=== PATIENT | female | born 1985 | race Two or more races ===

== ENCOUNTER 2020-11-19 08:55 | Outpatient (REF) | payer MEDICAID, SELFPAY | END 2020-11-19 08:56 | disposition home or self-care (01) | LOC: HO.LAB 08:55 | PROVIDERS: Visit Provider Internal Medicine | DX: Z20.822 Contact with and (suspected) exposure to COVID-19 (principal) | CPT/HCPCS: C9803; U0003; U0005 ==

== ENCOUNTER 2025-05-06 09:05 | Outpatient (REF) | payer MEDICAID, SELFPAY ==
--- OUTSIDE RECORDS SUMMARY | 2025-05-05 13:00 | XMS_ITS | Encounter Summary ---
Author Organization [employer] Address [address] [facility] [address], [place] [address] Care Team Providers Care Eeler Name Role Phone Caitlyn Powell CNP Primary Care Provider [phone] [phone] Reason for Referral * Consultation (Routine) - Pending Review Specialty Diagnoses / Procedures Referred By Walter escalera Referred To Contact Obstetrics and Gynecology Diagnoses Encounter for screening for malignant neoplasm of cervix Caitlyn Powell CNP [address] [place] [address] Phone: tel: fax: Referral ID Status Reason Start Date Expiration Date Visits Requested Visits Authorized [id number] Pending Review Specialty Services Required 05/05/2025 05/05/2026 1 1 Encounter Details Date Type Department Care Team ([facility] st Contact Info) Description 05/05/2025 1:00 PM EDT Office Visit [facility] [address] [place] [address] Caitlyn Powell CNP [address] [place] [address] Encounter to establish care (Primary Dx); Encounter for physical examination; Encounter for screening for malignant neoplasm of cervix Social History Tobacco Use Types Packs/Day Years Used Date Smoking Tobacco: Never Passive Smoke Exposure: Never Smokeless Tobacco: Never Alcohol Use Standard Drinks/Week Comments Yes 1 (1 standard drink = 0.6 oz pur e alcohol) Alcohol Answer Date Recorded Q1: How often do you have a drink containing alc ohol? 2 05/05/2025 Average Number of Drinks Not on file 025 Q3: How often do you have si x or more drinks on one occasion? 1 05/05/2025 Housing Stability Answer Date Recorded What is your housing situation today? I have torin waldron 04/28/[address] you li ve. Do you have problems with any of the following? None of the above 04/28/2025 Food Insecurity Answer Date Recorded Within the past 12 months, y ou worried that your food would run out before you got money to buy more: Never True 04/28/2025 Within the past 12 months,th e food you bought just didn't last and you didn't have enough money to get more: Never True Transportation Answer Date Recorded In the past 12 months, has l ack of transportation kept you from medical appts, meetings, work or from getting things needed for daily living? No 04/28/2025 Utilities Answer Date Recorded In the past 12 months, has t he electric, gas, oil or water company threatened to shut off services in your home? No 04/28/2025 Internet Access Answer Date Recorded Internet Access Q1 Yes 04/28/2025 Internet Access Q2 Not on file 04/28/2025 Comments No Intention Date Recorded No desire to become (finding) 0 05/05/2025 Sex and Gender Information Value Date Recorded Sex Assigned at Female 06/05/2022 10:15 AM EDT Legal Sex Female 10:15 AM EDT Gender Identity Female 06/05/2022 10:15 AM EDT Sexual Orientation Straight 04/28/2025 1: 06 PM EDT documented as of this encounter Last Filed Vital Signs Vital Sign Reading Time Taken Comments Blood Pressure 128/80 05/05/2025 1:12 PM EDT Pulse 70 05/05/2025 1:12 PM EDT Temperature 36.7 C (98.1 F) 05/05/2025 1:12 PM EDT Respiratory Rate 16 05/05/2025 1:12 PM EDT Oxygen Saturation 100% 05/05/2025 1:12 PM EDT Inhaled Oxygen Concentration - - Weight 78 kg (172 lb) 05/05/2025 1:12 PM EDT Height 162.6 cm (5' 4 ) 05/05/2025 1:12 PM EDT Body Mass Index 29.52 05/05/2025 1:12 PM EDT documented in this encounter Functional Status documented as of this encounter Progress Notes * Caitlyn Powell CNP - 05/05/2025 1:00 PM EDT Subjective: Danis Link is a 40 y.o. female who presents to the office for a new patient visit. Previous PCP unknown. Denies recent illness, injury or hospitalization. 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 She goes to [facility] OBGYN already established just needs new referral in place. Not seeking . Mental health:Denies any feelings of depression or anxiety No LMP recorded. (Menstrual status: IUD). Amenorrheic on IUD Allergies[4] Review of Systems Vitals: 05/05/25 1312 BP: 128/80 BP Location: Left arm Patient Position: Sitting BP Cuff Size: Large adult Pulse: 70 Resp: 16 Temp: 98.1 ??F (36.7 ??C) TempSrc: Oral SpO2: 100% Weight: 172 lb (78 kg) Height: 5' 4 (1.626 m) Physical Exam Constitutional: Appearance: Normal appearance. She is normal weight. HENT: Head: Normocephalic and atraumatic. Eyes: Extraocular Movements: Extraocular movements intact. Pupils: Pupils are equal, round, and reactive to light. Cardiovascular: Rate and Rhythm: Normal rate and regular rhythm. Pulses: Normal pulses. Heart sounds: Normal heart sounds. No murmur heard. No friction rub. No gallop. Pulmonary: Effort: Pulmonary effort is normal. No respiratory distress. Breath sounds: Normal breath sounds. No wheezing or rales. Musculoskeletal: Cervical back: Neck supple. No rigidity or tenderness. Right lower leg: No edema. Left lower leg: No edema. Lymphadenopathy: Cervical: No cervical adenopathy. Neurological: General: No focal deficit present. Mental Status: She is alert and oriented to person, place, and time. Psychiatric: Mood and Affect: Mood normal. Behavior: Behavior normal. Thought Content: Thought content normal. Judgment: Judgment normal. Assessment & Plan Encounter to establish care Encounter for physical examination 1. Anticipatory guidance discussed. Specific topics reviewed: drugs, ETOH, and tobacco, importance of regular dental care, importance of regular exercise, importance of varied diet, minimize junk food, and sex; STD and prevention as appropriate. 2. Age appropriate screenings discussed Routine Screening and Health Maintenance Optometry: No needs referral Dentist: Yes has dental home ASCVD risk: 40 y.o. femalelow no history of CVD or CVD risk factors Lab Review: no lab studies available for review at time of visit All due immunizations declined by pt Routine Cancer Screening Breast CA: not yet indicated based on age, denies personal or fam history of breast cancer Cervical CA: due, has appointment scheduled for next week Colon CA: not yet indicated based on age Orders: HIV-1/2 Antigen and Antibodies, Fourth Generation, with Reflexes; Future CBC auto differential; Future Basic Metabolic Panel; Future Lipid Panel, Standard; Future Hepatitis C Antibody with Reflex to HCV, RNA, Quantitative, Real-Time PCR; Future Encounter for screening for malignant neoplasm of cervix Will refer to OBGYN as requested by pt. She is already established. She plans to have cervical cancer screening and IUD replacement at scheduled appointment. Current Medications[5] Immunization History Administered Date(s) Administered Influenza injectable quadrivalent IIV4 with preservative 05/03/2015 [employer] Covid-19 Vaccine 12+ 12/01/2020, 12/24/2020 Tdap 05/03/2015, 11/06/2018 Follow up in about 1 year (around 05/05/2026) for routine physical. [1] There is no problem list on file for this patient. [2] Past Surgical History: Procedure Laterality Date TONSILLECTOMY 1994 [3] Family History Problem Relation Name Age of Onset Drug abuse Father Daniel Link Cancer Father Daniel Link 40 - 49 Cancer Maternal Grandmother Ailin Gray 80 - 99 [4] Not on File [5] No current outpatient medications on file. No current facility-administered medications for this visit. documented in this encounter Plan of Treatment Scheduled Orders Name Type Priority Associated Diagnoses Orde r Schedule HIV-1/2 Antigen and Antibodies, Fourth Generation, with Reflexes Lab Routine Encounter for physical examination Expected: 05/05/2025 (Approximate), Expires: 05/05/2026 CBC auto differential Lab Routine Encounter for physical examination Expected: 05/05/2025 (Approximate), Expires: 05/05/2026 Basic Metabolic Panel Lab Routine Encounter for physical examination Expected: 05/05/2025 (Approximate), Expires: 05/05/2026 Lipid Panel, Standard Lab Routine Encounter for physical examination Expected: 05/05/2025 (Approximate), Expires: 05/05/2026 Hepatitis C Antibody with Reflex to HCV, RNA, Quantitative, Real-Time PCR Lab Routine Encounter for physical examination Expected: 05/05/2025, Expires: 05/05/2026 Scheduled Referrals Name Type Priority Associated Diagnoses Order Schedule Referral to Obstetrics / Gynecology Outpatient Referral Routine Encounter for screening for malignant neoplasm of cervix Expected: 05/05/2025 (Approximate), Expires: 05/05/2026 documented as of this encounter Visit Diagnoses Diagnosis Encounter to establish care- Primary Encounter for physical examination Encounter for screening for malignant neoplasm of cervix documented in this encounter Care Teams Eeler Relationship Specialty Start Date End Date Caitlyn Powell CNP [address] [place] [id number] PCP - General Family Medicine 05/05/25 documented as of this encounter
--- OUTSIDE RECORDS SUMMARY | 2025-05-06 09:48 | XMS_ITS | Clinical Summary ---
Author Organization [employer] Address [address] [facility] [address] [place] [address] Care Team Providers Care Water Softener Servicer And Installer Name Role Phone Caitlyn Powell CNP Primary Care Provider [phone] Medications ketoconazole (NIZOral) 2 % cream Apply topically every 12 (twelve) hours. 10/15/19 19 025 Discontinued Ferrous Sulfate (iron) 90 (18 Fe) MG tablet 025 Discontinued cholecalcifero l (Vitamin D-3) 25 MCG (1000 UT) tablet Take 1 tablet by mouth at bed time. 07/20/20 21 025 Discontinued chlorhexidine (Peridex) 0.12 % solution RINSE WITH 15 ML IN MOUTH FOR A MINUTE 2 TIMES A DAY MOUTHWASH. DON'T SWALLOW 12/31/19 25 025 Discontinued Encounters Date Type Department Care Team Description 05/05/2025 1:00 PM EDT Office Visit [facility] [address] [place] [address] Caitlyn Powell CNP Encounter to establish care (Primary Dx); Encounter for physical examination; Encounter for screening for malignant neoplasm of cervix 05/05/2025 Travel 05/04/2025 Telephone [facility] [address] [place] [address] Lori Navarrete MA Chart Prep 04/28/2025 Patient Outreach [facility] [address] [place], [place] [phone] Matthew Plummer MD Pre-visit Planning (SDOH screening negative and Tobacco screening positive ) 04/28/2025 Travel 04/13/2025 Telephone [facility] [address] [place] [address] Matthew Plummer MD 04/09/2025 Telephone [facility] [address] [place] [address] Matthew Plummer MD [facility] - New Patient Assistance from Last 3 Months Immunizations Immunization Administration Dates Next Due Influenza injectable quadriv alent IIV4 with preservative 05/03/2015 Tdap 11/06/2018,05/03/2015 Family History Medical History Relation Name Comments Cancer Father Daniel Link Drug abuse Father Daniel Link Cancer Maternal Grandmother Ailin Gray Relation Name Status Comments Father Daniel Link Maternal Grandmother Ailin Gray Social History Tobacco Use Types Packs/Day Years [...] Orientation Straight 04/28/2025 1: 06 PM EDT Last Filed Vital Signs Vital Sign Reading [...] Mass Index 29.52 05/05/2025 1:12 PM EDT Plan of Treatment Health Maintenance Due Date Last Done Comments Depression Screening 1987 HIV Screening 1987 Hepatitis C Screening 2005 Pap Smear 02/20/2008 Cervical Cancer Screening 2017 HPV/Cotest 2017 Influenza Vaccine (#1) 2026 05/03/2015 Postp oned from 04/06/2025 (Patient Refused) Disability Screening 04/28/2026 04/28/2025 Alcohol/Substance Use Screening 05/05/2026 05/05/2025 COVID-19 Vaccine (3 - 2024-2 6 season) 2026 12/24/2020, 12/01/2020 Postponed from 04/06/2025 (Patient Refused) Family Planning (PISQ) 05/05/2026 05/05/2025 HPV Vaccines (1 - 3-dose series) 05/05/2026 Postponed from 02/19 (Patient Refused) Hepatitis B Vaccines (1 of 3 - 19+ 3-dose series) 05/05/2026 Postponed from 02/03 (Patient Refused) SDOH Screening 05/05/2026 05/05/2025 Tobacco Screening 05/05/2026 05/05/2025 DTaP/Tdap/Td Vaccines (3 - T d or Tdap) 11/06/2028 11/06/2018, 05/03/2015 Zoster Vaccines (1 of 2) 2037 RSV Patients and Patients Aged 60 years or older (1 - 1-dose 75+ series) 2062 HIB Vaccines Aged Out No longer eligi ble based on patient's age to complete this topic Hepatitis A Vaccines Aged Out No long er eligible based on patient's age to complete this topic IPV Vaccines Aged Out No longer eligi ble based on patient's age to complete this topic Meningococcal B Vaccine Aged Out No l onger eligible based on patient's age to complete this topic Meningococcal Vaccine Aged Out No jonathan obdulia eligible based on patient's age to complete this topic Pneumococcal Vaccine: Pediatrics (0 to 5 Years) and At-Risk Patients (6 to 49) Years Aged Out No longer eligible b ased on patient's age to complete this topic RSV under 20 months Aged Out No longe r eligible based on patient's age to complete this topic Rotavirus Vaccines Aged Out No longer eligible based on patient's age to complete this topic Insurance [facility] C3 Care Teams Water Softener Servicer And Installer Relationship Specialty Start Date End Date Caitlyn Powell CNP [address] [place] [address] [place] [address] PCP - General Family Medicine 05/05/25
--- OUTSIDE RECORDS SUMMARY | 2025-05-06 09:48 | XMS_ITS | Encounter Summary ---
Author Organization [employer] Address [address] [facility] [address] [place] [address] Care Team Providers Care Naphthalene Operator Name Role Phone Jaycob Ramírez MD Primary Care Prov ider Caitlyn Powell CNP Primary Care Provider [phone] Encounter Details Date Type Department Care Team (Latest Contact Info) Description 09/28/2020 Abstract [facility] Dental, Provider, DDS Social History Tobacco Use Types Packs/Day Years Used Date Smoking Tobacco: Never Assessed Comments Unknown Sex and Gender Information Value Date Recorded Sex Assigned at Female 06/05/2022 10:15 AM EDT Legal Sex Female 10:15 AM EDT Gender Identity Female 06/05/2022 10:15 AM EDT Sexual Orientation Straight 04/28/2025 1: 06 PM EDT documented as of this encounter Plan of Treatment Not on file documented as of this encounter Visit Diagnoses Not on filedocumented in this encounter Care Teams Naphthalene Operator Relationship Specialty Start Date End Date Jaycob Ramírez MD [address] [place] [address] PCP - General Internal Medicine 12/10/19 08/16/24 Caitlyn Powell CNP [address] [place] [address] PCP - General Family Medicine 05/05/25 documented as of this encounter
--- OUTSIDE RECORDS SUMMARY | 2025-05-06 09:48 | XMS_ITS | Clinical Summary ---
Author Organization [facility] Address [address] [place] [address] Care Team Providers Care Rotary Drier Feeder Name Role Phone Unavailable Primary Care Provider Unavailabl e Surgical History Surgery Date Site/Laterality Comments TONSILLECTOMY 1994 PROCEDURE: HISTORICAL TONSILLECTOMY Medical History Medical History Date Comments H/O seborrheic dermatitis 10/2018 DX:H/O seborrheic dermatitis; COMMENT: bilateral eye lids Family History Medical History Relation Name Comments Colon cancer Aunt maternal aunt Colon cancer Father Other: cancer Maternal Grandmother Relation Name Status Comments Aunt Father Alive Maternal Grandmother Social History Tobacco Use Types Packs/Day Years Used Date Smoking Tobacco: Never Smokeless Tobacco: Never Alcohol Use Standard Drinks/Week Comments No 0 (1 standard drink = 0.6 oz pur e alcohol) Comments Unknown Sex and Gender Information Value Date Recorded Sex Assigned at Not on file Legal Sex Female 3:00 AM EST Gender Identity Not on file Sexual Orientation Not on file Obstetrics History Plan of Treatment Health Maintenance Due Date Last Done Comments Hepatitis B Vaccines (1 of 3 - 19+ 3-dose series) 2006 Cervical Cancer Screening: P ap Smear 02/20/2008 HPV Vaccines (1 - 3-dose SCD M series) 2014 Depression Screening 08/06/2024 COVID-19 Vaccine ( - 2023-2 5 season) 2025 Influenza Vaccine (#1) 2025 DTaP,Tdap,and Td Vaccines (2 - Td or Tdap) 11/06/2028 11/06/2018 RSV Immunization Adult Patie nts (1 - 1-dose 75+ series) 2062 HIB Vaccines Aged Out No longer eligi ble based on patient's age to complete this topic Hepatitis A Vaccines Aged Out No long er eligible based on patient's age to complete this topic IPV Vaccines Aged Out No longer eligi ble based on patient's age to complete this topic MMR Vaccines Aged Out No longer eligi ble based on patient's age to complete this topic Meningococcal ACWY Vaccine Aged Out N o longer eligible based on patient's age to complete this topic Meningococcal B Vaccine Aged Out No l onger eligible based on patient's age to complete this topic Pneumococcal Vaccine: Pediat rics (0 to 5 Years) and At-Risk Patients (6 to 49 Years) Aged Out No longer eligi ble based on patient's age to complete this topic RSV Immunization Patients Un guy 20 months Aged Out No longer eligible b ased on patient's age to complete this topic Varicella Vaccines Aged Out No longer eligible based on patient's age to complete this topic
--- OUTSIDE RECORDS SUMMARY | 2025-05-06 09:48 | XMS_ITS | Encounter Summary ---
Author Organization [employer] Address [address] [facility] [address] [place] [address] Care Team Providers Care Customer Support Agent Name Role Phone Andre Emmettwaldemar JOE Primary Care Provider [phone] Encounter Details Date Type Department Care Team (Latest Contact Info) Description 05/05/2025 Travel Social History Tobacco Use Types Packs/Day Years [...] Q2 Not on file 04/28/2025 Comments No Sex and Gender Information Value Date Recorded Sex Assigned at Female 06/05/2022 10:15 AM EDT Legal Sex Female 10:15 AM EDT Gender Identity Female 06/05/2022 10:15 AM EDT Sexual Orientation Straight 04/28/2025 1: 06 PM EDT documented as of this encounter Functional Status documented as of this encounter Plan of Treatment Not on file documented as of this encounter Visit Diagnoses Not on filedocumented in this encounter Care Teams Customer Support Agent Relationship Specialty Start Date End Date Caitlyn Powell CNP [address] [place] [id number] PCP - General Family Medicine 05/05/25 documented as of this encounter
--- OUTSIDE RECORDS SUMMARY | 2025-05-06 09:48 | XMS_ITS | Encounter Summary ---
Author Organization [employer] Address [address] [facility] [address] [place] [address] Care Team Providers Care Lab Scientist Name Role Phone Jaycob Ramírez MD Primary Care Prov ider Caitlyn Powell CNP Primary Care Provider [phone] Encounter Details Date Type Department Care Team (Latest Contact Info) Description 11/20/2018 Abstract [facility] CONVERSION[facility] Dental, Provider, DDS Social [...] on filedocumented in this encounter Care Teams Lab Scientist Relationship Specialty Start Date End Date Jaycob Ramírez MD [address] [place] [address] PCP - General Internal Medicine 12/10/19 08/16/24 Caitlyn Powell CNP [address] [place] [address] PCP - General Family Medicine 05/05/25 documented as of this encounter
--- OUTSIDE RECORDS SUMMARY | 2025-05-06 09:48 | XMS_ITS | Encounter Summary ---
Author Organization [employer] Address [address] [facility] [address] [place] [address] Care Team Providers Care Binder Selector Name Role Phone Unavailable Primary Care Provider Unavailabl e Reason for Visit * Reason Onset Date Comments Chart Prep 05/04/2025 Encounter Details Date Type Department Care Team (Late st Contact Info) Description 05/04/2025 Telephone [facility] [address] [place], [place] [id number] Lori Navarrete MA Chart Prep Social History Tobacco Use Types Packs/Day Years Used Date Smoking Tobacco: Never Assessed Alcohol Answer Date Recorded Q1: How often do you have a drink containing alc ohol? 2 05/05/2025 Average Number of Drinks Not on file 025 Q3: How often do you have si x or more drinks on one occasion? 1 05/05/2025 Housing Stability Answer Date Recorded What is your housing situation today? I have torinviji waldron 04/28/[address] you [...] Access Q2 Not on file 04/28/2025 Comments Unknown Sex and Gender Information Value Date Recorded Sex Assigned at Female 06/05/2022 10:15 AM EDT Legal Sex Female 10:15 AM EDT Gender Identity Female 06/05/2022 10:15 AM EDT Sexual Orientation Straight 04/28/2025 1: 06 PM EDT documented as of this encounter Miscellaneous Notes * Telephone Encounter - Lori Navarrete MA - 05/04/2025 2:15 PM EDT Chart Prep Labs: not applicable Images: not applicable Referrals: not applicable Vaccines due: Covid, Flu, Hep B, and HPV Screenings: pap smear, STI screening, and LMP Overdue care gaps: SBIRT, PHQ-9, Oral health screening, and Tobacco documented in this encounter Plan of Treatment Not on file documented as of this encounter Visit Diagnoses Not on filedocumented in this encounter
[2025-05-06 14:04] LABS: MANUAL DIFF FLAG NO
[2025-05-06 14:09] LABS: Hematocrit 35.7 % (37.0-47.0); Hemoglobin 11.3 g/dl (12.0-16.0); Imm Gran Abs Auto 0.01 X10*3/uL (0.00-0.03); Imm Gran Pct Auto 0.2 % (0.0-0.4); Lymphocytes Absolute Auto 1.9 X10*3/uL (1.2-4.9); Mean Corpuscular HGB Conc 31.7 g/dl (31.0-35.0); Mean Corpuscular Hemoglobin 27.8 pg (27.0-33.0); Mean Corpuscular Volume 87.9 fL (80.0-98.0); NRBC Abs Auto 0.000 X10*3/uL (0.0-0.012); NRBC Pct Auto 0.0 /100WBC (0.0-0.2); Platelet Count 284 X10*3/uL (160-400); Red Blood Count 4.06 X10*6/uL (4.20-5.50); White Blood Count 5.6 X10*3/uL (4.8-10.8)
[2025-05-06 14:27] LABS: Anion Gap 8 (12-20); Blood Urea Nitrogen 12 mg/dL (9-16); Calcium 8.9 mg/dL (8.4-10.2); Carbon Dioxide 29 mmol/L (22-29); Chloride 107 mmol/L (96-108); Cholesterol 176 mg/dL (<200); Estimated Glomerular Filt Rate > 60; HDL Cholesterol 61 mg/dL (>40); Potassium 4.9 mmol/L (3.3-5.1); Sodium 139 mmol/L (135-145); Triglycerides 62 mg/dL (<150)
[2025-05-07 04:48] LABS: HIV Num 1 0.06 S/CO (0.00-0.99); ~HepC Num1 0.09 S/CO (0.00-0.79); ~Hepatitis C Antibody Nonreactive (Nonreactive)
== END 2025-05-06 09:06 | disposition home or self-care (01) ==
LOC: HO.CHCLDS 09:05
DX: Z00.00 Encounter for general adult medical examination without abnormal findings (principal); Z11.4 Encounter for screening for human immunodeficiency virus [HIV]; Z11.59 Encounter for screening for other viral diseases
CPT/HCPCS: 36415; 80048; 80061; 85025; 86803; 87389